=== PATIENT | female | born 1995 | race African-American/Black ===

== ENCOUNTER 2017-05-16 13:38 | Emergency (ER) | payer MEDICAID ==
[~2017-05-16] VITALS: Ht 162.6 cm; Wt 123.8 kg
[~2017-05-16 13:38] MED LIST: ONDA4TAB5 PO
[2017-05-16] MEDS ORDERED: ACETAMINOPHEN 500 MG TAB PO ONE (15:45)
[2017-05-16 16:01] VITALS: BP 123/92
== END 2017-05-16 17:05 | disposition left against medical advice (07) ==
LOC: ER 13:42
DX: R51 Headache (principal); Z53.21 Procedure and treatment not carried out due to patient leaving prior to being seen by health care provider

== ENCOUNTER 2019-01-06 14:38 | Emergency (ER) | payer MEDICAID ==
[~2019-01-06] VITALS: Ht 154.9 cm; Wt 126.1 kg
[2019-01-06 14:47] VITALS: BP 150/86
[2019-01-06 15:34] LABS: Urine Bacteria NONE SEEN /hpf (None Seen); Urine Blood 3+ /uL (Negative); Urine Specific Gravity 1.025 (1.001-1.035); Urine WBC <1 /hpf (0 - 5)
== END 2019-01-06 16:55 | disposition left against medical advice (07) ==
LOC: ER 14:42
DX: R07.89 Other chest pain (principal); E11.9 Type 2 diabetes mellitus without complications; I10 Essential (primary) hypertension; Z88.5 Allergy status to narcotic agent; Z91.040 Latex allergy status; Z91.010 Allergy to peanuts; Z90.49 Acquired absence of other specified parts of digestive tract
CPT/HCPCS: 81001; 81025; 93005

== ENCOUNTER 2019-03-08 15:21 | Emergency (ER) | payer MEDICAID ==
[~2019-03-08] VITALS: Ht 162.6 cm; Wt 99.8 kg
[2019-03-08] MEDS ORDERED: CARISOPRODOL 350 MG TAB PO ONE (16:00)
[2019-03-08 16:40] LABS: Urine Bacteria MANY /hpf (None Seen); Urine Blood 2+ /uL (Negative); Urine Mucus FEW (None Seen); Urine Specific Gravity 1.034 (1.001-1.035); Urine WBC 143 /hpf (0 - 5)
[2019-03-08] MEDS ORDERED: SULFAMETHOX W/TRIMETH(800/160MG) DS TAB PO ONE (17:45)
[2019-03-08 20:10] VITALS: BP 137/81
== END 2019-03-08 20:14 | disposition home or self-care (01) ==
LOC: EDBD 15:21 → EDUNIT# 15:21 → ER 15:31
DX: M54.9 Dorsalgia, unspecified (principal); M62.830 Muscle spasm of back; N39.0 Urinary tract infection, site not specified; E11.9 Type 2 diabetes mellitus without complications; I10 Essential (primary) hypertension; Z88.6 Allergy status to analgesic agent; Z91.040 Latex allergy status; Z91.010 Allergy to peanuts
CPT/HCPCS: 72040; 72070; 81001